=== PATIENT | female | born 1950 | race Caucasian/White ===

== ENCOUNTER → 2017-03-16 12:04 | Outpatient (CLI) | payer BC ==
[2010-01-20 13:51] VITALS: BMI 38.7
== END | disposition home or self-care (01) ==
LOC: D.MAMMO 12:04
DX: Z12.31 Encounter for screening mammogram for malignant neoplasm of breast (principal)

== ENCOUNTER 2017-10-17 08:56 | Outpatient (CLI) | payer MEDICARE, OTHER ==
[~2017-10-17] VITALS: Ht 162.6 cm; Wt 100.0 kg
--- NOTE | ~2017-10-17 | HEMODYNAMI ---
PATIENT:ALMITA UMANZOR MEDICAL RECORD: [id number] : 54 LOCATION:[facility] ADMISSION DATE: 10/17/17 Generatedon:10/17/201713:29 Patient name: ALMITA UMANZOR Patient #: [id number] SSN: : 1950 Date of study: 10/17/2017 Page: Of Hemodynamic Procedure Report Patient Data Patient Demographics Procedure consent was obtained First Name: ALMITA Gender: Female Last Name: NOÉ : 1950 [facility] Initial: DA Age: 67 year(s) Patient #: [id number] Race: Unknown Additional ID: [id number] Contact details [address]: [address] [place] [address] [address] State: [place] City: [place] Zip code: [address] Admission Admission Data Admission Date: 10/17/2017 Admission Time: 8:56 Procedure Procedure Types Cath Procedure Diagnostic Procedure LHC LHC w/Coronaries Procedure Description Procedure Date Procedure Date: 10/17/2017 Procedure Start Time: 13:20 Procedure End Time: 13:26 Procedure Staff Name Function Yaya Lucia MD Performing Physician Meliton Story RN Nurse Chantelle Marc RT Scrub Jonathan Oneill RT Monitor Procedure Data Cath Procedure Fluoroscopy Diagnostic fluoroscopy Total fluoroscopy Time: 0.8 time: 0.8 min min Diagnostic fluoroscopy Total fluoroscopy dose: 252 dose: 252 mGy mGy Contrast Material Contrast Material Type Amount (ml) Isovue 300 43 Entry Location Entry Primary Successful Side Size Upsize Upsize Entry Closure Succes sful Closure Location (Fr) 1 (Fr) 2 (Fr) Remarks Device Remarks Femoral Right 5 Fr Exoseal artery Estimated blood loss: 10 ml Diagnostic catheters Device Type Used For End Catheter Placement MULTIPACK Pigtail 5 Fr Procedure catheter MULTIPACK JL 4.0 5Fr Procedure catheter MULTIPACK 3DRC 5Fr Procedure catheter Procedure Complications No complications Procedure Medications Medication Administration Route Dosage Oxygen etCO2 Nasal cannula 2 l/min Heparin Flush Bag added to field 2 bags (1000units/500ml NS) 0.9% NaCl I.V. 100 ml/hr Fentanyl I.V. 50 mcg Versed I.V. 1 mg Fentanyl I.V. 50 mcg Versed I.V. 1 mg Fentanyl I.V. 50 mcg Fentanyl I.V. 50 mcg Hemodynamics Rest Heart Rate: 72 (bpm) Snapshots Pre Cath Intra NCS Post Cath Vital Signs Time Heart Resp SPO2 etCO2 NIBP (mmHg) Rhythm Pain Sedation Rate (ipm) (%) (mmHg) Status Level (bpm) 13:02:29 62 16 0 149/78(121) NSR 0 (11) 10(A) , No pain 13:07:02 59 16 98 0 135/70(104) NSR 0 (11) 10(A) , No pain 13:11:30 70 16 100 0 130/73(90) NSR 0 (11) 10(A) , No pain 13:15:58 68 17 100 0 125/72(93) NSR 0 (11) 10(A) , No pain 13:20:29 66 17 100 0 124/65(89) NSR 0 (11) 9(A) , No pain 13:24:55 69 16 98 0 127/72(102) NSR 0 (11) 9(A) , No pain Medications Time Medication Route Dose Verified Delivered Reason Notes Effe ctiveness by by 13:16:26 Oxygen etCO2 2 Yaya Rivasy Per Nasal l/min Rea Story RN physician cannula 13:16:34 Heparin Flush added 2 Yaya Meliton used for Bag to bags Rea Story sourcing engineer (1000units/500ml field NS) 13:16:41 0.9% NaCl I.V. 100 Yaya Meliton Per ml/hr Rea Story RN physician 13:16:48 Fentanyl I.V. 50 Yaya Coelho for mcg Rea Story RN sedation 13:16:53 Versed I.V. 1 mg Yaya Coelho for Rea Story RN sedation 13:19:05 Fentanyl I.V. 50 Yaya Coelho for mcg Rea Story RN sedation 13:19:09 Versed I.V. 1 mg Yaya Coelho for Rea Story RN sedation 13:20:48 Fentanyl I.V. 50 Yaya Coelho for kingsley Story RN sedation 13:23:01 Fentanyl I.V. 50 Yaya Coelho for [facility] MD Story RN sedation Procedure Log Time Note 12:40:37 Meliton Story RN sent for patient. Start room use. 12:44:38 Time tracking: Call back (After hours or weekends) 12:44:49 Plan of Care:Hemodynamics will remain stable., Cardiac rhythm will remain stable., Comfort level will be maintained., Respiratory function will remain adequate., Patient/ family verbilizes understanding of procedure., Procedure tolerated without complication., Recovers from procedure without complications.. 12:55:50 Patient received from ED to CCL 2 Alert and oriented. Tansferred to table in Supine position. 12:55:50 Warm blankets applied, and wily hugger turned on for patient comfort. 12:55:51 Correct patient and procedure confirmed by team. 12:55:52 Signed procedure consent form obtained from patient. 12:55:53 ECG and BP/O2 sat monitors applied to patient. 12:55:54 Full Disclosure recording started 13:01:00 Vital chart was started 13:01:05 Baseline sample Acquired. 13:01:13 Rhythm: sinus rhythm 13:01:22 H&P Date Dictated: 10/17/2017 Emergent; H&P N/A. 13:01:23 Pre-procedure instructions explained to patient. 13:01:23 Pre-op teaching completed and patient verbalized understanding. 13:01:31 Family in waiting room. 13:01:42 Patient NPO since Breakfast. 13:01:46 Is the patient allergic to Iodine/contrast media? No. 13:01:47 Is patient on blood thinner?No 13:01:49 Patient diabetic? No. 13:01:52 Previous problem with sedation/anesthesia? No ? 13:01:53 Snore? Yes 13:01:54 Sleep apnea? No 13:01:55 Deviated septum? No 13:01:56 Opens mouth fully? Yes 13:01:57 Sticks out tongue? Yes 13:01:58 Airway obstruction? No ? 13:02:00 Dentures? No ? 13:02:03 Pre procedure: right dorsailis pedis pulse 1+ Palpable, but thready & weak; easily obliterated 13:02:21 IV in RIGHT WRIST. 13:02:24 Patient pain scale 0/10 ?. 13:02:30 IV patent on arrival in right wrist with 0.9% NaCl at [facility]. 13:02:32 Lab results completed and on chart. 13:02:35 Right groin area was prepped with chlora-prep and draped in sterile fashion 13:02:37 Alarms reviewed by R. N. 13:02:37 Sharps counted by scrub and verified by R.N. 13:02:41 Use device set Femoral Dx 13:02:44 Tegaderm 4 x 4 (1626W) opened to sterile field. 13:02:44 PERCUTANEOUS ENTRY 19GA needle opened to sterile field. 13:02:46 ACIST Manifold (47440) opened to sterile field. 13:02:46 ACIST Hand Control (45473) opened to sterile field. 13:02:48 ACIST Syringe (29548) opened to sterile field. 13:02:48 Bag Decanter (2002S) opened to sterile field. 13:02:49 Medline Cath Pack ([id number]) opened to sterile field. 13:02:50 DIAGNOSTIC WIRE .035 260cm J wire (158433) opened to sterile field. 13:02:51 DIAGNOSTIC Multipack 5Fr catheter set (VY5262) opened to sterile field. 13:03:01 SHEATH Prelude 5Fr 0.035 (JNZ-4D-04-035) opened to sterile field. 13:10:02 Physician paged 13:13:49 Zero performed for pressure channel P1 13:16:02 --------ALL STOP TIME OUT------ 13:16:02 Final Timeout: patient, procedure, and site verified with staff and physician. All members of the team are in agreement. 13:16:07 Right groin site verified by team. 13:16:09 Physical assessment completed. ASA score P 2 - A patient with mild systemic disease as per Yaya Lucia MD. 13:16:12 Sedation plan: IV Moderate Sedation Medication:Versed, Fentanyl 13:16:26 Oxygen 2 l/min etCO2 Nasal cannula was administered by Meliton Story RN; Per physician; 13:16:34 Heparin Flush Bag (1000units/500ml NS) 2 bags added to field was administered by Meliton Story RN; used for procedure; 13:16:41 0.9% NaCl 100 ml/hr I.V. was administered by Meliton Story RN; Per physician; 13:16:48 Fentanyl 50 mcg I.V. was administered by Meliton Story RN; for sedation; 13:16:53 Versed 1 mg I.V. was administered by Meliton Story RN; for sedation; 13:18:50 Procedure started. 13:19:05 Fentanyl 50 mcg I.V. was administered by Meliton Story RN; for sedation; 13:19:09 Versed 1 mg I.V. was administered by Meliton Story RN; for sedation; 13:20:44 Local anesthetic to right femoral artery with Lidocaine 2% by Yaya Lucia MD.INITIAL ACCESS ONLY 13:20:48 Fentanyl 50 mcg I.V. was administered by Meliton Story RN; for sedation; 13:20:55 A 5 Fr sheath was inserted into the Right Femoral artery 13:21:19 A MULTIPACK Pigtail 5 Fr catheter was advanced over the wire and used for Procedure. 13:21:46 LV angiography performed. 13:21:47 LV gram done using MINER 13:21:58 EF : 55 % 13:22:06 Injector settings: Ml/sec: 10, Volume: 20, 13:22:09 Catheter removed. 13:22:27 A MULTIPACK JL 4.0 5Fr catheter was advanced over the wire and used for Procedure. 13:22:48 LCA angiography performed. 13:23:01 Fentanyl 50 mcg I.V. was administered by Meliton Story RN; for sedation; 13:23:18 Catheter removed. 13:23:24 A MULTIPACK 3DRC 5Fr catheter was advanced over the wire and used for Procedure. 13:24:05 RCA angiography performed. 13:24:07 Catheter removed. 13:24:18 EXOSEAL 5Fr (EX500) opened to sterile field. 13:24:53 Sheath removed intact; hemostasis achieved with Exoseal to the Right Femoral artery. 13:24:55 Procedure ended.(Physican Out) 13:25:15 Fluoroscopy time 00.80 minutes. 13:25:20 Fluoroscopy dose: 252 mGy 13:25:20 Flurop Dose total: 252 13:25:26 Contrast amount:Isovue 300 43ml. 13:25:27 Sharps counted by scrub and verified by R.N. 13:25:34 Insertion/operative site no bleeding no hematoma. 13:25:36 Post-op/insertion site Right Femoral artery dressed using a 4 x 4 and Tegaderm. 13:25:38 Post Procedure Pulses reassessed and unchanged 13:25:42 Post-procedure physical assessment completed. ASA score P 2 - A patient with mild systemic disease as per Yaya Lucia MD. 13:25:44 Post procedure rhythm: unchanged. 13:25:47 Estimated blood loss: 10 ml 13:25:49 Post procedure instruction explained to patient.Patient verbalizes understanding. 13:25:49 Patient needs reinforcement of post procedure teaching. 13:25:57 Procedure and supply charges have been captured, reviewed, submitted and are correct. 13:26:00 Procedure Complication : No complications 13:26:14 Vital chart was stopped 13:26:14 See physician's report for complete and final results. 13:26:16 Report given to PCU. 13:26:20 Patient transfered to PCU with Bed. 13:26:22 Procedure ended. 13:26:22 Full Disclosure recording stopped 13:29:17 End room use (Document Last) Device Usage Item Name Manufacture Quantity Catalog Number Hospital Part Current M inimal Lot# / Charge Number Stock Stock Serial# Code Tegaderm 4 x 4 3M 1 1626W [id number] [id number] [id number] 5 (1626W) PERCUTANEOUS [employer] 1 [id number] 271141 266571 5 ENTRY 19GA needle ACIST Manifold Acist 1 45476 320572 261912 428420 5 (54925) [employer] Inc ACIST Hand Acist 1 96797 832053 009054 865398 5 Control (02692) [employer] Inc ACIST Syringe Acist 1 22337 462924 231834 360563 2 0 (81484) [employer] Inc Bag Decanter Microtek 1 2002S 085423 23365 750252 5 (2001S) Medical Inc. Medline Cath Cardinal 1 [id number] 095483 57743 018999 5 Pack Health ([id number]) DIAGNOSTIC WIRE [facility] [place] 1 458120 461210 458945 892793 3 0 .035 260cm J wire (935658) DIAGNOSTIC Cardinal 1 AZ0684 014214 61527 133118 3 0 Multipack 5Fr Health catheter set (IV1133) SHEATH Prelude Merit 1 TNL-4K-30-035 055285 478039 355556 5 5Fr 0.035 Medical (TKW-6P-78-035) MULTIPACK Cardinal 1 316995 5 Pigtail 5 Fr Health catheter MULTIPACK JL Cardinal 1 700583 5 4.0 5Fr Health catheter MULTIPACK 3DRC Cardinal 1 623259 5 5Fr catheter Health EXOSEAL 5Fr Cardinal 1 EX500 626729 888844 662524 1 0 (EX500) Health Signature Audit [place] Stage Time Signature Unsigned Intra-Procedure 10/17/2017 Jonathan Oneill 1:29:40 PM RT(R) Signatures Monitor : Jonathan Oneill RT Signature : Date : Time : [address] [address]
--- NOTE | ~2017-10-17 | DS ---
PATIENT:ALMITA UMANZOR :54 MEDICAL RECORD: [id number] DISCHARGE SUMMARY ADMISSION DATE: 10/17/17 DISCHARGE DATE: 10/17/17 Ms. Umanzor presents with chest pain. Cardiac catheterization was normal. She was discharged home with followup with Dr. Garcia in [facility]. TRANSINT:[id number] Voice Confirmation ID: [id number] DOCUMENT ID: [id number] HEAVEN PHILLIPS MD at 0956 CC: [id number] DICTATION DATE: 10/17/17 1327 CRIMINAL INTELLIGENCE ANALYST: 10/18/17 0252 DEP CLI 10/17/17 [place] [id number] [place] [id number]
--- NOTE | ~2017-10-17 | OP ---
PATIENT NAME: ALMITA UMANZOR MEDICAL RECORD: [id number] :54 LOCATION:[facility] ADMISSION DATE: SURGEON: HEAVEN PHILLIPS MD DATE OF OPERATION: 10/17/2017 PROCEDURES: 1. Left heart catheterization. 2. Selective coronary angiography. 3. Left ventriculogram. INDICATION: Chest pain. PROCEDURE IN DETAIL: After informed consent was obtained and after a detailed explanation of the risks, benefits as well as alternative therapies, the patient elected to proceed with angiogram and heart catheterization. The right femoral area was prepped and draped in normal sterile fashion. The right femoral artery was cannulated via modified negative with placement of 5-Trinidadian sheath. All catheters exchanged through this sheath. FINDINGS: Left ventriculogram was performed in standard 30-degree MINER view, reveals good cardiac wall motion throughout all segments. Overall ejection fraction estimated 60%. SELECTIVE CORONARY ANGIOGRAPHY: Left main, left anterior descending, left circumflex, right coronary artery are all smooth-walled vessels with no angiographic evidence of coronary artery disease. OVERALL IMPRESSION: 1. No angiographic evidence of coronary artery disease. 2. Normal left heart pressures. 3. Normal left ventricular systolic function. Chest pain is noncardiac in etiology. No further cardiac workup needs to be ascertained. TRANSINT:[id number] Voice Confirmation ID: [id number] DOCUMENT ID: [id number] HEAVEN PHILLIPS MD at 0956 CC: [id number] DICTATION DATE: 10/17/17 1328 GEOLOGY PROFESSOR: 10/17/17 1825 DEP CLI 10/17/17 [place] [id number] [place] [id number]
--- NOTE | ~2017-10-17 | CN ---
PATIENT NAME:ALMITA UMANZOR MEDICAL RECORD: [id number] : 54 LOCATION:[facility] ADMIT DATE: ACCOUNT: [id number] CONSULTING PHYSICIAN: HEAVEN PHILLIPS MD REFERRING PHYSICIAN: HEAVEN PHILLIPS MD DATE OF CONSULTATION: 10/17/2017 DIAGNOSES: 1. Chest pain compatible with angina. 2. Recent abnormal nuclear stress test suggestive of ischemia. 3. Status post previous ablation. 4. Recurrent PVCs and nonsustained ventricular tachycardia. HISTORY OF PRESENT ILLNESS: Mrs. Umanzor is followed at [facility] by Dr. Garcia. She has extensive history of arrhythmias since in her 40s. She has had 3 ablations. She now has frequent PVCs and nonsustained ventricular tachycardia. She underwent nuclear stress testing last week. This was positive. She was set for cardiac catheterization. She was in buddhist today, began having chest pressure, presented to the Emergency Room. She continues to have the chest pressure. Her EKG is with no acute ST-T abnormalities. PHYSICAL EXAMINATION: GENERAL APPEARANCE: Well-nourished, well-developed, appears stated age. Level of distress, comfortable. PSYCHIATRIC: Mental status, alert, normal affect. Orientation, oriented to time, place and person. EYES: Lids and conjunctiva, noninjected. No discharge, no pallor. ENT: Lips, teeth, gums, normal dentition. Oropharynx, no cyanosis, no pallor. NECK: Carotid arteries, bilateral normal upstroke, no bruits, no thrills. JUGULAR VEINS: No jugular venous pressure or distention. CERVICAL LYMPH NODES: Nontender, nonenlarged. THYROID: Not enlarged. Nontender. No nodules. LUNGS: Respiratory effort, unlabored. CHEST: Normal curvature. No thoracic deformity. No chest wall tenderness. Percussion, resonant. Auscultation, clear. No wheezes, no rales, no rhonchi. CARDIOVASCULAR: Precordial exam, nondisplaced. No heaves or pericardial thrills. Rate and rhythm, regular. Heart sounds, normal S1, normal S2. No S3, no gallop, no rub. Systolic murmur, not heard. Diastolic murmur, not heard. EXTREMITIES: No cyanosis, no edema. Peripheral pulses, full and equal in all extremities, except as noted. No bruits appreciated. ABDOMEN: Soft, nondistended. Normal aorta. No bruit. Nontender. No masses. Liver, nontender, no hepatomegaly. Spleen, nontender, no splenomegaly. MUSCULOSKELETAL: No joint tenderness. No joint swelling. No erythema. NEUROLOGICAL: Normal gait, normal strength, normal tone. SKIN: Warm and dry. REVIEW OF SYSTEMS: The patient reports easy bruising but reports no swollen glands. The patient reports no fever, no night sweats, no significant weight gain, no significant weight loss. No significant exercise tolerance. The patient reports no dry eyes, no irritation, no vision change. Patient reports no difficulty hearing and no ear pain. Patient reports no frequent nose bleeds or nose and sinus problems. Patient reports on arm pain on exertion. No shortness of breath while lying down. No history of heart murmur. Patient reports no cough, no wheezing or coughing up blood. Patient reports no abdominal pain, no vomiting. Normal appetite. No diarrhea and not vomiting CONSULT REPORT [id number] ALMITA UMANZOR blood. No nausea and no constipation. Patient reports no incontinence. No difficulty urinating. No hematuria. No increased frequency. Patient reports no muscle aches. No weakness, no arthralgias, no back pain. No swelling of the extremities. Patient reports no abnormal mole, no jaundice, no rashes. Reports no loss of consciousness. No weakness and no numbness. No seizures, dizziness, or headaches. The patient reports no depression, no sleep disturbance, feeling safe in a relationship and no alcohol abuse. Patient reports on fatigue. Reports no runny nose or sinus pressure. No itching, no hives, and no frequent sneezing. OVERALL IMPRESSION: Chest pressure with abnormal nuclear stress test. She has a high likelihood of hemodynamically significant coronary artery disease. We will proceed with coronary angiography. Further care depends upon the findings of the angiography. TRANSINT:[id number] Voice Confirmation ID: [id number] DOCUMENT ID: [id number] HEAVEN PHILLIPS MD at 0956 CC: [id number] DICTATION DATE: 10/17/17 1050 HOUSEKEEPING MANAGER: 10/17/17 1456 DEP CLI 10/17/17 [place] [id number] [place] [address]
[2017-10-17 09:32] LABS: BASOPHILS 0.3 % (0-2); EOSINOPHILS 2.4 % (0-7); HEMATOCRIT 40.5 % (36.0-48.0); HEMOGLOBIN 13.4 g/dL (12-16); IMMATURE GRANULOCYTES 0.3 % (0-5); MCH 32.6 pg (26.0-34.0); MCHC 33.1 g/dL (31.0-37.0); MCV 98.5 fL (80.0-100.0); MEAN PLATELET VOLUME 11.6 fL (7.4-10.4); MONOCYTES 7.3 % (2-11); NEUTROPHILS 54.7 % (40-80); PLATELET COUNT 168 10x3/uL (130-400); RBC 4.11 10x6/uL (4.00-5.40); RDW 12.9 % (11.5-14.5)
[2017-10-17 09:54] LABS: ALBUMIN 3.7 g/dL (3.4-5.0); ALKALINE PHOSPHATASE 90 U/L (46-116); ALT (SGPT) 34 U/L (10-68); CALC OSMOLALITY 283 mosm/kg (275-300); CALCIUM 8.9 mg/dL (8.5-10.1); CHLORIDE - SERUM 108 mmol/L (98-107); CREATININE - SERUM 0.9 mg/dL (0.6-1.3); POTASSIUM - SERUM 4.2 mmol/L (3.5-5.1); PROTEIN - SERUM 7.3 g/dL (6.4-8.2); SODIUM 140 mmol/L (136-145); UREA NITROGEN 18 mg/dL (7-18); eGFR NON AFRICAN AMERICAN 67 mL/min (90-120)
[2017-10-17 09:55] LABS: GLUCOSE 148 mg/dL (74-106)
[2017-10-17 10:01] LABS: CHOL - HDL RATIO 2.7 ratio (2.3-4.1); CHOLESTEROL, TOTAL 126 mg/dL (0-200); CKMB 0.9 U/L (0.0-3.6); CREATINE KINASE 68 UL (21-215); HDL CHOLESTEROL 47 mg/dL (32-96); LDL CHOLESTEROL 42 mg/dL (0-100); LDL-HDL RATIO 0.9 ratio (1.5-3.5); PRO BNP 75 pg/mL (0-125); TRIGLYCERIDE 186 mg/dL (30-200); TROPONIN-I < 0.017 ng/mL (0.000-0.060)
[2017-10-17 14:07] VITALS: BP 119/60; Ht 162.6 cm; Wt 100.0 kg
== END 2017-10-17 17:54 | disposition home or self-care (01) ==
LOC: OBSVTIME → D.ER 08:56 → D.M2 13:33 → D.ER 13:50 → D.M2 13:50 → OBSVTIME 13:50 → EDSTATUS 14:54 → D.ER 17:54 → D.M2 17:54
PROVIDERS: Family Medicine
DX: R07.9 Chest pain, unspecified (principal); R94.30 Abnormal result of cardiovascular function study, unspecified; Z01.812 Encounter for preprocedural laboratory examination

== ENCOUNTER 2019-03-31 09:00 | Outpatient (CLI) | payer MEDICARE, BC ==
[2017-10-17 14:07] VITALS: BMI 37.8
== END 2019-03-31 10:00 | disposition home or self-care (01) ==
LOC: D.MAMMO 09:00
PROVIDERS: ATTEND Family Medicine
DX: Z12.31 Encounter for screening mammogram for malignant neoplasm of breast (principal)